=== PATIENT | male | born 1945 | race Caucasian/White ===

== ENCOUNTER → 2022-01-18 12:12 | Outpatient (BNVA) | payer MEDICARE, OTHER, SELFPAY | PROVIDERS: PCP Internal Medicine; Visit Provider Psychiatry & Neurology Psychiatry | DX: F33.9 Major depressive disorder, recurrent, unspecified (principal); F43.12 Post-traumatic stress disorder, chronic | CPT/HCPCS: 90833; 99212 ==

== ENCOUNTER → 2022-03-11 13:25 | Outpatient (BNVA) | payer MEDICARE, OTHER, SELFPAY | PROVIDERS: PCP Internal Medicine; Visit Provider Psychiatry & Neurology Psychiatry | DX: F43.12 Post-traumatic stress disorder, chronic (principal); F33.9 Major depressive disorder, recurrent, unspecified | CPT/HCPCS: 99212 ==

== ENCOUNTER → 2022-08-17 13:01 | Outpatient (BNVA) | payer MEDICARE, OTHER, SELFPAY | PROVIDERS: PCP Internal Medicine; Visit Provider Psychiatry & Neurology Psychiatry ==

== ENCOUNTER 2022-10-17 14:03 | Outpatient (AMB) | payer MEDICARE, OTHER, SELFPAY ==
--- OUTSIDE RECORDS SUMMARY | 2022-10-17 14:04 | XMS_ITS | Continuity of Care Document ---
Author Name Unknown Organization [facility] Address [address] [facility], [address] d Floor, [address] [place] [id number]- Care Team Providers Care Dietary Worker Name Role Phone Fercho GREEN, Liset Primary Care Physici an [facility] Date[facility]): 07/21/22 - 08/20/22 [facility] [address] [facility], 3rd Floor, [address] [place] [id number]- Allergies, Adverse Reactions, Alerts Substance Reaction Severity Status codeine Seizure Active penicillin Swelling - edema - symptom A ctive folic acid Itching Active tetanus toxoid Swelling - edema - symptom Active Immunizations Given and Recorded Vaccine Date Status Refusal Reason influenza virus vaccine, inactivated 01/10/22 Celso rded influenza virus vaccine, inactivated 12/26/20 Celso rded influenza virus vaccine, inactivated 12/31/19 Celso rded influenza virus vaccine, inactivated 01/11/19 Celso rded influenza virus vaccine, inactivated 01/30/18 Celso rded influenza virus vaccine, inactivated 03/06/17 Celso rded [id number] 12y+ bivalent booster vax 12/31/21 Recorded pneumococcal 20-valent conjugate vaccine 07/19/21 Recorded SARS-CoV-2 mRNA ([id number]) vax 06/16/21 Recorded SARS-CoV-2 (COVID-19) mRNA BNT-162b2 vac 12/21/20 Recorded SARS-CoV-2 (COVID-19) mRNA BNT-162b2 vac 07/09/20 Recorded SARS-CoV-2 (COVID-19) mRNA BNT-162b2 vac 06/19/20 Recorded Influenza Virus Vaccine (oldterm) 12/24/19 Recorde d Influenza Virus Vaccine (oldterm) 01/22/19 Recorde d pneumococcal 23-valent vaccine 11/27/15 Recorded pneumococcal 23-valent vaccine 11/26/14 Recorded Zoster Vaccine Live 11/26/14 Recorded Medications Aspirin Tablet 81 mg, By Mouth, Daily, Refills 0, Maintenance, 11/13/19 15:47:00 EDT Start Date: 11/13/19 Status: Ordered Coreg 25 mg oral tablet 25 mg, 1, tablet, By Mouth, 2 times a day, # 180 tablet, Refills 3, Tot. Refills 3, Maintenance, 08/05/22 10:36:00 EDT, Route to Pharmacy Electronically, [facility]/pharmacy #[id number], 172, cm, 06/25/22 11:27:00 EST, Height, 64.7, kg, 01/07/22 13:22:00 EDT, Dry... Start Date: 08/05/22 Stop Date: 07/31/23 Status: Ordered duloxetine 20 mg oral enteric coated capsule 1 capsule = 20 mg, By Mouth, Daily, 0 Refills, Maintenance, 12/21/21 10:12:00 EDT, Partial fill upon patient request if the prescription is for a schedule II opioid drug. Start Date: 12/21/21 Status: Ordered Evista 60 mg oral tablet 1 tablet, By Mouth, Daily, # 90 tablet, 0 Refills, Maintenance, 07/01/22 8:34:00 EST, [facility], 172, cm, 06/25/22 11:27:00 EST, Height, 64.7, kg, 01/07/22 13:22:00 EDT, Dry Weight Start Date: 07/01/22 Status: Ordered Flonase 50 mcg/inh nasal spray 1 sprays, Nares, Both, 2 times a day, # 16 Gm, 0 Refills, Maintenance, 09/25/21 16:47:00 EDT, [place], Partial fill upon patient request if the prescription is for a schedule II opioid drug. Start Date: 09/25/21 Status: Ordered isosorbide mononitrate 30 mg oral tablet, extended release 30 mg, 1, tablet, By Mouth, Daily in AM, Brand name IMDUR medically necessary, # 90 tablet, Refills3, Tot. Refills 3, Maintenance, 07/13/22 8:38:00 EDT, Route to Pharmacy Electronically, [id number], Please dispense brand name IMDUR, pat... Start Date: 07/13/22 Stop Date: 07/08/23 Status: Ordered Keppra 500 mg oral tablet 1 tablet = 500 mg, By Mouth, 2 times a day, # 60 tablet, 5 Refills, Maintenance, 07/21/22 12:59:00 EDT, Tablet, [facility], Partial fill upon patient request if the prescription is for a schedule II opioid drug., 172, cm, 06/25/22 11:27:... Start Date: 07/21/22 Status: Ordered Lipitor 80 mg oral tablet 1 tablet = 80 mg, By Mouth, Daily, # 90 tablet, 3 Refills, Maintenance, 06/14/22 14:46:00 EST, Tablet, [facility], 172, cm, 05/25/22 14:29:00 EST, Height, 64.7, kg, 01/07/22 13:22:00 EDT, Dry Weight Start Date: 06/14/22 Stop Date: 06/09/23 Status: Ordered Marinol 10 mg oral capsule See Instructions, 0 Refills, Maintenance, 01/13/21 11:24:00 EDT, Partial fill upon patient request if the prescription is for a schedule II opioid drug. Start Date: 01/13/21 Status: Ordered MS Contin 15 mg oral tablet, extended release See Instructions, 2 tablets By Mouth in the AM and 1 tablet in PM, 0 Refills, Maintenance, 11/20/2016:45:00 EDT, Partial fill upon patient request Start Date: 11/21/19 Status: Ordered nitroglycerin 0.4 mg sublingual tablet 1 tablet = 0.4 mg, Sublingual, Every 5 minutes, PRN for chest pain, not to exceed 3 doses/15 min--if pain persists, seek medical attention, # 30 tablet, 2 Refills, Maintenance, 07/05/21 17:01:00 EDT,Tablet, [facility]/pharmacy #[id number], 178, cm, 03/16/21 13:39... Start Date: 07/05/21 Status: Ordered Norvasc 5 mg oral tablet 5 mg, 1, tablet, By Mouth, Daily, BRAND NAME NORVASC ONLY, NO SUBSTITUTIONS, # 30 tablet, Refills 5, Tot. Refills 5, Maintenance, 09/27/21 16:44:00 EDT, Route to Pharmacy Electronically, [facility]/pharmacy#[id number], Partial fill upon patient request if the pre... Start Date: 09/27/21 Stop Date: 03/26/22 Status: Ordered [place]-3 1000 mg oral capsule 1 capsule = 1,000 mg, By Mouth, Daily, 0 Refills, Maintenance, 08/04/21 12:15:00 EDT, Partial fill upon patient request if the prescription is for a schedule II opioid drug. Start Date: 08/04/21 Status: Ordered omeprazole 20 mg oral delayed release tablet 1 tablet = 20 mg, By Mouth, Daily, # 90 tablet, 0 Refills, Maintenance, 01/07/22 15:26:00 EDT, CR Tablet, [facility], Partial fill upon patient request if the prescription is for a schedule II opioid drug., 172, cm, 01/07/22 13:22:00 EDT... Start Date: 01/07/22 Status: Ordered Plenvu oral powder for reconstitution See Instructions, split dose 1/2 dose day before 1/2 dose day of procedure (6hrs before procedure),# 1,000 mL, 0 Refills, Maintenance, 10/13/21 8:09:00 EDT, [facility], Partial fill upon patient request if the prescription is for a s... Start Date: 10/13/21 Status: Ordered Valium 10 mg oral tablet 10 mg, 1, tablet, By Mouth, 3 times a day, PRN, Refills 0, Maintenance, as needed for anxiety, 05/25/19 13:51:00 EST Start Date: 05/25/19 Status: Ordered Xanax 1 mg oral tablet 1 tablet = 1 mg, By Mouth, Daily, as needed for severe agitation, 0 Refills, Maintenance, 05/25/19 13:52:00 EST Start Date: 05/25/19 Status: Ordered Problem List Condition Confirmation Course Effective Dates Status Health St atus Informant Anemia Confirmed Active Anxiety Confirmed Active Chronic pain Confirmed Active Coronary artery disease Confirmed Active Hernia, hiatal 1 Confirmed Active Hypertension Confirmed Active Major depression in remission Confirmed Active Osteoporosis 2 Confirmed Active Prediabetes Confirmed Active Seizure Confirmed Active 1Small, sliding on July 06, 2021 CAT scan 2per pt Social History Social History Type Response Smoking Status Former smoker, quit more than 30 days ago; Other: Quit 1969; entered on: 08/04/21 Sex Patient Care team information Care Team Personnel Name: Barby Price Position: [facility] RN Member Role: Primary Care Nurse Name: Fercho GREEN, Liset Position: [facility] Medicine Member Role: PCP Address: Address: [address] [place] [id number]- Care Team Related Persons Name: CHERRIE BERKOWITZ Address: home [address] [place] [address]
--- OUTSIDE RECORDS SUMMARY | 2022-10-17 14:05 | XMS_ITS | Continuity of Care Document ---
Author Name Unknown Organization [facility] Address [address] [place] [address] [address] [place] [address]- Care Team Providers Care Apparatus Cleaner Name Role Phone Fercho GREEN, Liset Primary Care Physici an [facility] Date[facility]s): 08/04/22 - 09/03/22 [facility] [address] [place] [address]- Allergies, Adverse Reactions, Alerts Substance Reaction Severity [...] influenza virus vaccine, inactivated 03/06/17 Celso rded [id number] 12y+ bivalent booster vax 12/31/21 Recorded pneumococcal 20-valent conjugate vaccine 07/19/21 Recorded SARS-CoV-2 mRNA ([id number]) vax 06/16/21 Recorded SARS-CoV-2 (COVID-19) mRNA BNT-162b2 [...] 2 times a day, # 60 tablet, Refills 2, Tot. Refills 2, Maintenance, 08/29/22 16:36:00 EDT, Route to Pharmacy Electronically, [facility]/pharmacy #[id number], generic (Carvedilol) please, 172, cm, 06/25/22 11:27:00 EST, Height, 64.7, kg,... Start Date: 08/29/22 Stop Date: 11/27/22 Status: Ordered duloxetine 20 mg oral enteric [...] Gm, 0 Refills, Maintenance, 09/25/21 16:47:00 EDT, [place], Partial fill upon patient request if the [...] tablet, 2 Refills, Maintenance, 07/05/21 17:01:00 EDT,Tablet, [facility]/pharmacy #[id number], 178, cm, 03/16/21 13:39... Start Date: 07/05/21 Status: Ordered Norvasc 5 mg oral tablet 5 mg, 1, tablet, By Mouth, Daily, BRAND NAME NORVASC ONLY, NO SUBSTITUTIONS, # 30 tablet, Refills 5, Tot. Refills 5, Maintenance, 09/27/21 16:44:00 EDT, Route to Pharmacy Electronically, [facility]/pharmacy#[id number], Partial fill upon patient request if the pre... Start Date: 09/27/21 Stop Date: 03/26/22 Status: Ordered [place]-3 1000 mg oral capsule 1 capsule = [...] Care Team Personnel Name: Barby Price Position: [facility] RN Member Role: Primary Care Nurse Name: Fercho GREEN, Liset Position: [facility] Medicine Member Role: PCP Address: Address: [address] [place] [address] [address] [place] [address]- Care Team Related Persons Name: CHERRIE BERKOWITZ Address: home [address] [place] [address]
--- NOTE | 2022-10-17 14:40 | MHC.OFFVISPS ---
Intake Intake Visit Reasons: depression Allergies codeine [CODEINE] Allergy (Intermediate, Unverified 01/09/20 15:39) RASH/VOMITING, vomiting Penicillins [PENICILLINS] Allergy (Intermediate, Unverified 01/09/20 15:39) ARM EDEMA ibandronate sodium Allergy (Unknown, Verified 05/09/18 00:00) rash penicillin V Allergy (Unknown, Verified 05/09/18 00:00) arm edema Tetanus Allergy (Unknown, Unverified 10/22/18 00:00) arm edema TETANUS & DIPHTHERIA TOX,ADULT Allergy (Intermediate, Uncoded 01/09/20 15:39) ARM EDEMA Codeine Sulfate Allergy (Unknown, Uncoded 10/22/18 00:00) shellfish Allergy (Unknown, Uncoded 05/09/18 00:00) vomiting HPI- Psychiatric Chief Complaint: depression HPI Past Psychiatric History: Patient is a 76-year-old male with long history of recurrent depression anxiety and PTSD. He normally sees Dr. Ashish Galvan for regular counseling. He did not tolerate duloxetine 20 mg and has been taking Valium 10 t.i.d. alprazolam 1 mg daily which has been tapered down gradually over number of years. We have had multiple discussions over affects of benzodiazepines specially as people get older patient has been quite resistant to trying to taper down. : Discussed with patient and trying to taper down on diazepam risk of clouding slowed mentation fall risk. Patient with longstanding PTSD fearful of tapering down on diazepam agreeable to starting sertraline 25 mg The patient is also on Keppra MS Contin other medications that can cause clouding might benefit from changing from long-acting Valium to alprazolam 3 to 4 times a day which might be in longer safer. Patient has been resistant to this. I spent [40] minutes reviewing the record, seeing the patient and documenting in the medical record. Patient is a 76-year-old male with long history of recurrent depression anxiety and PTSD. He normally sees Dr. Ashish Galvan for regular counseling. He did not tolerate duloxetine 20 mg and has been taking Valium 10 t.i.d. alprazolam 1 mg daily which has been tapered down gradually over number of years. We have had multiple discussions over affects of benzodiazepines specially as people get older patient has been quite resistant to trying to taper down. The patient has had an increase in PTSD symptoms with the [place] more it is also been more withdrawn and isolated since COVID he has been quite preoccupied become in ill and dying from this. He was quite active in seeing his adopted granddaughters sports games which she has ceased going to. He has been more depressed in isolated no SI. Patient has been seeing Dr. Deepak uBrton in psychotherapy for many years patient has experienced decline in physical health over the past couple years with stresses related to requiring 3 stents coronary at [facility] osteoporosis chronic pain syndrome spinal difficulties [place] he has tried Cymbalta in the past had GI side effects was on Wellbutrin in the past for number of years with good effect has reportedly developed a seizure disorder and has been off of this. Or the patient use to see Dr. Gonzalez thomas for psychiatric follow-up for number of years has been seeing Dr. Kike Ng for psychiatric follow-up Impaired judgment in relation to understanding the affects of benzodiazepines on balance sedation cognition specially in relation to the aging process. [place] he has tried Cymbalta in the past had GI side effects was on Wellbutrin in the past for number of years with good effect has reportedly developed a seizure disorder and has been off of this Or the patient use to see Dr. Gonzalez thomas for psychiatric follow-up for number of years has been seeing Dr. Kike Ng for psychiatric follow-up Assessment and Plan Assessment & Plan (1) Cognitive impairment: Status: Acute Code(s): R41.89 - Other symptoms and signs involving cognitive functions and awareness (2) Chronic post-traumatic stress disorder (PTSD): Status: Acute Code(s): F43.12 - Post-traumatic stress disorder, chronic (3) Major depression, recurrent, chronic: Status: Acute Code(s): F33.9 - Major depressive disorder, recurrent, unspecified Plan Patient with chronic PTSD narcissistic orientation has been on high-dose benzodiazepines for an extended period of time we have discussed trying to taper down over time the patient and often becomes quite and rage. He is having difficulty with working attention short-term memory and executive functioning. His is managing most things and there was questionable history of aggression on his part. Patient seen with his she is supportive during the meeting but clearly can see that the patient's functioning has deteriorated. The patient does have cardiovascular disease he is certainly at risk of vascular brain changes also chronic PTSD can cause or is associated with brain changes. Check CBC comprehensive profile B12 folate hemoglobin A1c syphilis screen would benefit from coordination of care with Dr. Burton who in the past has been a neuro psychologist is the patient's therapist patient ruminating and depressed has been off antidepressants for an extended period of time agreeable to low-dose sertraline can very gradually try to lower Valium which is quite long-acting he is on 30 mg a day would try to lower to 25 mg a day patient also on Keppra questionable history seizure. Recommended patient see neurologist also would benefit from MRI. Did have extensive discussion with the patient's and patient that diazepam is quite long-acting and as he gets older the levels would be higher for the same dosages his blood stream that was previously. And that his tolerance would become diminished over time and that would be difficult to get a clear evaluation of his neurocognitive status unless could be tapered down. Might benefit from change from long-acting Valium alprazolam t.i.d. however is probably could not being accomplished as an outpatient and might need to be a [facility] psych Unit The patient has been it [facility] for some of his medical care the patient's is trying to get an appointment with [facility] neurologist See minimental status Medications: New Zoloft (sertraline) 25 mg PO DAILY 30 tabs 1RF NS Orders: Orders Complete Blood Count Auto Diff 10/17/22 F43.12 - Post-traumatic stress disorder, chronic, F33.9 - Major depressive disorder, recurrent, unspecified, R41.89 - Other symptoms and signs involving cognitive functions and awareness Comprehensive Met. Panel 10/17/22 F43.12 - Post-traumatic stress disorder, chronic, F33.9 - Major depressive disorder, recurrent, unspecified, R41.89 - Other symptoms and signs involving cognitive functions and awareness Hemoglobin A1c 10/17/22 F43.12 - Post-traumatic stress disorder, chronic, F33.9 - Major depressive disorder, recurrent, unspecified, R41.89 - Other symptoms and signs involving cognitive functions and awareness TSH reflex Free T4 10/17/22 F43.12 - Post-traumatic stress disorder, chronic, F33.9 - Major depressive disorder, recurrent, unspecified, R41.89 - Other symptoms and signs involving cognitive functions and awareness Vitamin B12 and Folate 10/17/22 F43.12 - Post-traumatic stress disorder, chronic, F33.9 - Major depressive disorder, recurrent, unspecified, R41.89 - Other symptoms and signs involving cognitive functions and awareness Syphilis Screen 10/17/22 F43.12 - Post-traumatic stress disorder, chronic, F33.9 - Major depressive disorder, recurrent, unspecified, R41.89 - Other symptoms and signs involving cognitive functions and awareness Counseling and coordination of Care Medication management counseling: Effectiveness, Side effects and Dosing range Diagnosis and Prognosis Counseling: Accuracy of diagnosis, Impact of diagnosis on life functions, Problematic behaviors secondary to diagnosis and Adequacy of current interventions Details: I spent [45] minutes reviewing the record, seeing the patient and documenting in the medical record. Counseling provided to the patient/caregiver as outlined below. Addressed patient/caregiver concerns regarding current medication regime including effective adherence. Addressed patient/caregiver concerns regarding diagnosis and prognosis including accuracy of diagnosis, prognosis over time, impact of diagnosis. Addressed patient/caregiver concerns regarding impact of recent stressors. REPLACED BY [facility] Medical History (Updated 10/17/22 @ 14:37 by Kike Ng MD) Chronic post-traumatic stress disorder (PTSD) Surgical History (Updated 01/18/22 @ 16:46 by Kike Ng MD) H/O heart artery stent Social History: The patient is he has a son in [place] he is raising his granddaughter his daughter's child. Patient served in [place] for 1/2 years has significant PTSD. Substance History: Patient has been prescribed Marinol and benzodiazepines for many years he also is prescribed MS Contin. Denies history of substance abuse Trauma History: History of severe combat trauma in [place] Coding Level of Care Code Est Pt Level 3 (59667) Therapy 30m w/E&M (96227) Diagnoses Cognitive impairment R41.89 Chronic post-traumatic stress disorder (PTSD) F43.12 Major depression, recurrent, chronic F33.9
== END 2022-10-17 14:54 | disposition home or self-care (01) ==
PROVIDERS: PCP Internal Medicine; Visit Provider Psychiatry & Neurology Psychiatry
DX: R41.89 Other symptoms and signs involving cognitive functions and awareness (principal); F43.12 Post-traumatic stress disorder, chronic; F33.9 Major depressive disorder, recurrent, unspecified
CPT/HCPCS: 90833; 99213

== ENCOUNTER 2022-10-17 14:03 | Outpatient (REF) | payer MEDICARE, OTHER, SELFPAY ==
[2022-10-17 15:18] LABS: MANUAL DIFF FLAG NO
[2022-10-17 15:37] LABS: Basophils Absolute Auto 0.1 X10*3/uL (0.0-0.2); Basophils Percent Auto 1.1 % (0-2); Eosinophils Absolute Auto 0.4 X10*3/uL (0.0-0.4); Eosinophils Percent Auto 6.7 % (0-4); Hematocrit 32.8 % (42.0-52.0); Imm Gran Abs Auto 0.01 X10*3/uL (0.00-0.03); Imm Gran Pct Auto 0.2 % (0.0-0.4); Lymphocytes Absolute Auto 1.9 X10*3/uL (1.2-4.9); Lymphocytes Percent Auto 35.3 % (20-40); Mean Corpuscular HGB Conc 33.5 g/dl (31.0-36.0); Mean Corpuscular Hemoglobin 32.6 pg (27.0-33.0); Mean Corpuscular Volume 97.3 fL (80.0-98.0); Mean Platelet Volume 10.4 fL (9.4-12.4); Monocytes Absolute Auto 0.5 X10*3/uL (0.1-1.2); Monocytes Percent Auto 9.8 % (2-11); Neutrophils Absolute Auto 2.6 x10*3/uL (2.0-8.3); Neutrophils Percent Auto 46.9 % (45-73); Platelet Count 207 X10*3/uL (160-400); Red Blood Count 3.37 X10*6/uL (4.60-5.80); Red Cell Distribution Width 11.9 % (11.0-16.0); White Blood Count 5.5 X10*3/uL (4.8-10.8)
[2022-10-17 15:47] LABS: Estimated Average Glucose 114 mg/dL; Hemoglobin A1c % 5.6 %
[2022-10-17 16:24] LABS: Alanine Aminotransferase 18 U/L (0-40); Albumin Level 3.9 g/dL (3.5-5.0); Alkaline Phosphatase 75 U/L (39-117); Anion Gap 10 (12-20); Aspartate Amino Transferase 26 U/L (5-37); Bilirubin Total 0.6 mg/dL (0.0-1.0); Blood Urea Nitrogen 17 mg/dL (9-16); Calcium 9.4 mg/dL (8.4-10.2); Carbon Dioxide 31 mmol/L (22-29); Chloride 102 mmol/L (96-108); Estimated Glomerular Filt Rate > 60; Glucose Random 137 mg/dL (60-115); Potassium 4.8 mmol/L (3.3-5.1); Sodium 138 mmol/L (135-145); Total Protein 6.4 g/dL (6.5-8.0)
[2022-10-17 16:31] LABS: TSH reflex Free T4 1.71 uIU/mL (0.32-4.0)
[2022-10-17 16:47] LABS: Folate 18.5 ng/mL (> or = 4.0); Vitamin B12 883 pg/mL (200-900)
[2022-10-19 05:13] LABS: Syphilis Screen Nonreactive (Nonreactive)
== END 2022-10-17 14:04 | disposition home or self-care (01) ==
LOC: HO.LAB 14:03
PROVIDERS: PCP Internal Medicine; Visit Provider Psychiatry & Neurology Psychiatry
DX: F33.9 Major depressive disorder, recurrent, unspecified (principal); F43.12 Post-traumatic stress disorder, chronic; R41.89 Other symptoms and signs involving cognitive functions and awareness; F41.9 Anxiety disorder, unspecified; Z79.899 Other long term (current) drug therapy
CPT/HCPCS: 36415; 80053; 82607; 82746; 83036; 84443; 85025; 86780; 90833; 99212

== ENCOUNTER 2022-11-28 14:26 | Outpatient (AMB) | payer MEDICARE, OTHER, SELFPAY ==
--- NOTE | 2022-11-28 15:18 | MHC.OFFVISPS ---
Intake Intake Visit Reasons: depression Allergies codeine [CODEINE] Allergy (Intermediate, Unverified 01/09/20 15:39) RASH/VOMITING, vomiting Penicillins [PENICILLINS] Allergy (Intermediate, Unverified 01/09/20 15:39) ARM EDEMA ibandronate sodium Allergy (Unknown, Verified 05/09/18 00:00) rash penicillin V Allergy (Unknown, Verified 05/09/18 00:00) arm edema Tetanus Allergy (Unknown, Unverified 10/22/18 00:00) arm edema TETANUS & DIPHTHERIA TOX,ADULT Allergy (Intermediate, Uncoded 01/09/20 15:39) ARM EDEMA Codeine Sulfate Allergy (Unknown, Uncoded 10/22/18 00:00) shellfish Allergy (Unknown, Uncoded 05/09/18 00:00) vomiting HPI- Psychiatric Chief Complaint: depression HPI Narrative: Patient seen with his . Have strongly advised gradual taper down on benzodiazepines patient has been on benzodiazepines for many years for treatment of severe PTSD and we have tried over time to gradually taper down. Patient can be quite irritable reactive and rigid in relationship to his treatment patient was read hospitalized with what appears to be anxiety in relationship to and dissipation of decreasing benzodiazepines. I have advised neuropsych testing patient states he did not tolerate sertraline. Had been on antidepressants often on for a number of years most recently a stated he did not tolerate and presence. Case reviewed with his psychologist agrees that the patient is showing cognitive deterioration consistent months likely with early dementia see prior screening and testing. Patient wishes to get care at [facility] where he had cardiology intervention they are looking to have further neurologic evaluation patient complains of frequent flashbacks nightmares has been dysphoric irritable denies any harm to himself or others I have also discussed with patient his the option of getting treatment at the [facility] Past Psychiatric History: Patient is a 76-year-old male with long history of recurrent depression anxiety and PTSD. He normally sees Dr. Ashish Galvan for regular counseling. He did not tolerate duloxetine 20 mg and has been taking Valium 10 t.i.d. alprazolam 1 mg daily which has been tapered down gradually over number of years. We have had multiple discussions over affects of benzodiazepines specially as people get older patient has been quite resistant to trying to taper down. : Discussed with patient and trying to taper down on diazepam risk of clouding slowed mentation fall risk. Patient with longstanding PTSD fearful of tapering down on diazepam agreeable to starting sertraline 25 mg The patient is also on Keppra MS Contin other medications that can cause clouding might benefit from changing from long-acting Valium to alprazolam 3 to 4 times a day which might be in longer safer. Patient has been resistant to this. I spent [40] minutes reviewing the record, seeing the patient and documenting in the medical record. Patient is a 76-year-old male with long history of recurrent depression anxiety and PTSD. He normally sees Dr. Ashish Galvan for regular counseling. He did not tolerate duloxetine 20 mg and has been taking Valium 10 t.i.d. alprazolam 1 mg daily which has been tapered down gradually over number of years. We have had multiple discussions over affects of benzodiazepines specially as people get older patient has been quite resistant to trying to taper down. The patient has had an increase in PTSD symptoms with the [place] more it is also been more withdrawn and isolated since COVID he has been quite preoccupied become in ill and dying from this. He was quite active in seeing his adopted [employer] sports games which she has ceased going to. He has been more depressed in isolated no SI. Patient has been seeing Dr. Deepak Burton in psychotherapy for many years patient has experienced decline in physical health over the past couple years with stresses related to requiring 3 stents coronary at [facility] osteoporosis chronic pain syndrome spinal difficulties Patient was hospitalized in the for [facility] through the [facility]. he has tried Cymbalta in the past had GI side effects was on Wellbutrin in the past for number of years with good effect has reportedly developed a seizure disorder and has been off of this. Or the patient use to see Dr. Gonzalez thomas for psychiatric follow-up for number of years has been seeing Dr. Kike Ng for psychiatric follow-up Impaired judgment in relation to understanding the affects of benzodiazepines on balance sedation cognition specially in relation to the aging process. Patient was hospitalized in the for [facility] through the [facility]. he has tried Cymbalta in the past had GI side effects was on Wellbutrin in the past for number of years with good effect has reportedly developed a seizure disorder and has been off of this Or the patient use to see Dr. Gonzalez thomas for psychiatric follow-up for number of years has been seeing Dr. Kike Ng for psychiatric follow-up Mental Status Exam Mental Status Exam Narrative: Mental Status Exam Narrative: Appearance: Casually dressed Behavior: irritable somewhat demanding in manner psychomotor: Restless Speech: Somewhat louder Thought proccess ruminating somewhat circumstantial otherwise logical Thought content: Future oriented no self-harming thoughts talks about intrusive memories Mood: Anxious dysphoric irritable Affect: labile SI:denies HI:denies VH/AH:none Delusions: None Insight/judgment: Difficulty taking in information that he does not want hear poor attention Memory/cog: Difficult to assess at this time discussed comprehensive cognitive assessment Patient Behavior: Passive Mood Description: Depressed and Blunted Affect Description: Constricted, Depressed, Flat and Apprehensive Memory Description: Episodic Impaired Hallucinations: None Delusions: Not Present Thought Content: positive for [place], negative for Suicidal Ideation or negative for Homicidal Ideation Depressive Symptoms: Isolating-Friends/Family and Loss of Energy Judgement and Insight: Impaired judgment in relation to understanding the affects of benzodiazepines on balance sedation cognition specially in relation to the aging process. Assessment and Plan Assessment & Plan (1) Chronic post-traumatic stress disorder (PTSD): Status: Acute Code(s): F43.12 - Post-traumatic stress disorder, chronic (2) Major depression, recurrent, chronic: Status: Acute Code(s): F33.9 - Major depressive disorder, recurrent, unspecified (3) Cognitive impairment: Status: Acute Code(s): R41.89 - Other symptoms and signs involving cognitive functions and awareness Plan Her patient seen with his discussed trying to very gradually go down by half tablet of Valium every few weeks and that has an extremely long half-life patient cannot integrate this in has a lot of anxiety regarding any time this is brought up. To try to introduce an SSRI for some help with his irritability and dysphoria. Patient has always been somewhat self referential grandiose unclear if all of his war stories are based in reality seems to get more grandiose with time and difficulty understanding that he is having cognitive changes. We have tried to gradually go down over time have strongly urged concurrent antidepressant which she has tolerated in the past may need to inpatient [facility] setting recommended [facility] General Neurology and [facility] patient's therapist Dr. Galvan is also aware patient deny violence or threats at home no SI Medications: Changed From Valium orally PRN; 1/2 - 1 tablet up to 3 x day try and gradually decrease to 1/2 tab 3 x day 80 tabs 0RF anxiety NS To Valium (diazepam) orally PRN; 1/2 - 1 tablet up to 3 x day 90 tabs 0RF anxiety NS From Valium orally PRN; 1/2 - 1 tablet up to 3 x day 90 tabs 0RF anxiety NS To Valium (diazepam) orally PRN; 1/2 - 1 tablet up to 3 x day 90 tabs 0RF anxiety NS Refilled Marinol (dronabinol) 5 - 10 mg (1 - 2 x 5 mg) PO BEDTIME 60 caps 1RF 30 days NS Xanax (alprazolam) 1 mg PO DAILY PRN 30 tabs 1RF anxiety NS Discontinued sertraline Discontinued Reason: Duplicate 25 mg PO DAILY 30 tabs 1RF Counseling and coordination of Care Details: I spent [] minutes reviewing the record, seeing the patient and documenting in the medical record. Counseling provided to the patient/caregiver as outlined below. Addressed patient/caregiver concerns regarding current medication regime including effective adherence. Addressed patient/caregiver concerns regarding diagnosis and prognosis including accuracy of diagnosis, prognosis over time, impact of diagnosis. Addressed patient/caregiver concerns regarding impact of recent stressors. [facility] Medical History (Updated 10/17/22 @ 14:37 by Kike Ng MD) Chronic post-traumatic stress disorder (PTSD) Surgical History (Updated 01/18/22 @ 16:46 by Kike Ng MD) H/O heart artery stent Social History: The patient is he has a son in [place] he is raising his granddaughter his daughter's child. Patient served in [place] for 1/2 years has significant PTSD. Substance History: Patient has been prescribed Marinol and benzodiazepines for many years he also is prescribed MS Contin. Denies history of substance abuse Trauma History: History of severe combat trauma in [place] Coding Level of Care Code Est Pt Level 4 (59785) Diagnoses Chronic post-traumatic stress disorder (PTSD) F43.12 Major depression, recurrent, chronic F33.9 Cognitive impairment R41.89
== END 2022-11-28 15:22 | disposition home or self-care (01) ==
LOC: HO.HOP 14:26
PROVIDERS: PCP Internal Medicine; Visit Provider Psychiatry & Neurology Psychiatry
DX: F43.12 Post-traumatic stress disorder, chronic (principal); F33.9 Major depressive disorder, recurrent, unspecified; R41.89 Other symptoms and signs involving cognitive functions and awareness
CPT/HCPCS: 99214

== ENCOUNTER → 2022-11-28 14:26 | Outpatient (BNVA) | payer MEDICARE, OTHER, SELFPAY | PROVIDERS: PCP Internal Medicine; Visit Provider Psychiatry & Neurology Psychiatry | DX: R41.89 Other symptoms and signs involving cognitive functions and awareness (principal); F43.12 Post-traumatic stress disorder, chronic; F33.9 Major depressive disorder, recurrent, unspecified | CPT/HCPCS: 99212 ==

== ENCOUNTER 2023-07-19 11:22 | Outpatient (AMB) | payer MEDICARE, OTHER, SELFPAY ==
--- NOTE | 2023-07-19 11:55 | A.OFFPSYCH_ITS ---
Intake Intake Visit Reasons: depression Allergies codeine [CODEINE] Allergy (Intermediate, Unverified 01/09/20 15:39) RASH/VOMITING, vomiting Penicillins [PENICILLINS] Allergy (Intermediate, Unverified 01/09/20 15:39) ARM EDEMA ibandronate sodium Allergy (Unknown, Verified 05/09/18 00:00) rash penicillin V Allergy (Unknown, Verified 05/09/18 00:00) arm edema Tetanus Allergy (Unknown, Unverified 10/22/18 00:00) arm edema TETANUS & DIPHTHERIA TOX,ADULT Allergy (Intermediate, Uncoded 01/09/20 15:39) ARM EDEMA Codeine Sulfate Allergy (Unknown, Uncoded 10/22/18 00:00) shellfish Allergy (Unknown, Uncoded 05/09/18 00:00) vomiting Medication List - Last Reconciled 07/26/23 by Kike Ng MD amlodipine (Norvasc) 5 mg PO DAILY aspirin 81 mg PO DAILY atorvastatin (Lipitor) 80 mg PO DAILY carvedilol (Coreg) 25 mg PO BID clopidogrel (Plavix) 75 mg PO DAILY isosorbide mononitrate ER 30 mg PO QAM levetiracetam 750 mg PO BID morphine ER (MS Contin) 15 mg PO BID pantoprazole 20 mg PO DAILY raloxifene (Evista) 60 mg PO DAILY Valium (diazepam) 2 mg PO BEDTIME PRN NS HPI- Psychiatric Chief Complaint: depression HPI Narrative: The patient is a 77 year old male seen with his . The patient has developed clear dementia I have discussed his the need to follow-up with neurology. The patient is off antidepressants on 5 mg of Valium at bedtime he is also on Keppra seizure disorder. Past Psychiatric History: Patient is a 76-year-old male with long history of recurrent depression anxiety and PTSD. He normally sees Dr. Ashish Galvan for regular counseling. He did not tolerate duloxetine 20 mg and has been taking Valium 10 t.i.d. alprazolam 1 mg daily which has been tapered down gradually over number of years. We have had multiple discussions over affects of benzodiazepines specially as people get older patient has been quite resistant to trying to taper down. : Discussed with patient and trying to taper down on diazepam risk of clouding slowed mentation fall risk. Patient with longstanding PTSD fearful of tapering down on diazepam agreeable to starting sertraline 25 mg The patient is also on Keppra MS Contin other medications that can cause clouding might benefit from changing from long-acting Valium to alprazolam 3 to 4 times a day which might be in longer safer. Patient has been resistant to this. I spent [40] minutes reviewing the record, seeing the patient and documenting in the medical record. Patient is a 76-year-old male with long history of recurrent depression anxiety and PTSD. He normally sees Dr. Ashish Galvan for regular counseling. He did not tolerate duloxetine 20 mg and has been taking Valium 10 t.i.d. alprazolam 1 mg daily which has been tapered down gradually over number of years. We have had multiple discussions over affects of benzodiazepines specially as people get older patient has been quite resistant to trying to taper down. The patient has had an increase in PTSD symptoms with the [place] more it is also been more withdrawn and isolated since COVID he has been quite preoccupied become in ill and dying from this. He was quite active in seeing his adopted granddaughters sports games which she has ceased going to. He has been more depressed in is olated no SI. Patient has been seeing Dr. Deepak Burton in psychotherapy for many years patient has experienced decline in physical health over the past couple years with stresses related to requiring 3 stents coronary at [facility] osteoporosis chronic pain syndrome spinal difficulties Patient was hospitalized in the for PTSD through the [place]. he has tried Cymbalta in the past had GI side effects was on Wellbutrin in the past for number of years with good effect has reportedly developed a seizure disorder and has been off of this. Or the patient use to see Dr. Gonzalez thomas for psychi atric follow-up for number of years has been seeing Dr. Kike Ng for psychiatric follow-up Impaired judgment in relation to understanding the affects of benzodiazepines on balance sedation cognition specially in relation to the aging process. Patient was hospitalized in the for PTSD through the [place]. he has tried Cymbalta in the past had GI side effects was on Wellbutrin in the past for number of years with good effect has reportedly developed a seizure disorder and has been off of this Or the patient use to see Dr. Gonzalez thomas for psychiatric follow-up for number of years has been seeing Dr. Kike Ng for psychiatric follow-up Mental Status Exam Mental Status Exam Narrative: [id number] knows where he lives 1972 x day mood ok repetitive fearful to be alone often wanting his to stay in with him otherwise becomes anxious and irritable Patient anxious difficulty with changing thought patterns obsessional rumination repeats over and over again brand name necessary no gross paranoia SI or HI. Assessment and Plan Assessment & Plan (1) Chronic post-traumatic stress disorder (PTSD): Status: Acute Code(s): F43.12 - Post-traumatic stress disorder, chronic (2) Dementia: Status: Acute Code(s): F03.90 - Unspecified dementia, unspecified severity, without behavioral disturbance, psychotic disturbance, mood disturbance, and anxiety Plan Patient has gradually tapered off Marinol diazepam he is on Keppra. I have discussed with his need for neurological follow-up for seizure disorder and dementia. Handout given regarding dementia treatment including cholinesterase inhibitors would probably be a good candidate for [place] The patient and do see Dr. Burton who is a neuropsychologist and in addition to Neurology and primary care can offer ongoing treatment and recommendations Medications: Changed From Valium (diazepam) orally PRN; 1/2 - 1 tablet up to 3 x day try and decrease to half tab 2 x day 60 tabs 1RF anxiety NS To diazepam 1 tab bedtime x 2 weeks then stop 2 mg PO BEDTIME PRN 14 tabs 0RF sleep From diazepam 1 tab bedtime x 2 weeks then stop 2 mg PO BEDTIME PRN 14 tabs 0RF sleep To Valium (diazepam) 1 tab bedtime x 2 weeks then stop 2 mg PO BEDTIME PRN 20 tabs 0RF sleep NS Discontinued Marinol (dronabinol) Discontinued Reason: Doctor's Order 5 - 10 mg (1 - 2 x 5 mg) PO BEDTIME 60 caps 1RF 30 days NS Xanax (alprazolam) Discontinued Reason: Doctor's Order 1 mg PO DAILY PRN 30 tabs 1RF anxiety NS Counseling and coordination of Care Details-Diagnosis/Prognosis counseling: Discussion regarding dementia memory disorder diagnosis recommendations for fol low-up would benefit [facility] PTSD symptoms seem to be less patient has not generally stayed on antidepressant treatment Details: I spent [25] minutes reviewing the record, seeing the patient and documenting in the medical record. Counseling provided to the patient/caregiver as outlined below. Addressed patient/caregiver concerns regarding current medication regime including effective adherence. Addressed patient/caregiver concerns regarding diagnosis and prognosis including accuracy of diagnosis, prognosis over time, impact of diagnosis. Addressed patient/caregiver concerns regarding impact of recent stressors. [facility] Medical History (Updated 07/26/23 @ 13:30 by Kike Ng MD) Dementia Chronic post-traumatic stress disorder (PTSD) Surgical History (Updated 01/18/22 @ 16:46 by Kike Ng MD) H/O heart artery stent Social History: The patient is he has a son in [place] he is raising his granddaughter his daughter's child. Patient served in [place] for 1/2 years has significant PTSD. Substance History: Patient has been prescribed Marinol and benzodiazepines for many years he also is prescribed MS Contin. Denies history of substance abuse Trauma History: History of severe combat trauma in [place] Coding Level of Care Code Est Pt Level 4 (56482) Diagnoses Chronic post-traumatic stress disorder (PTSD) F43.12 Dementia F03.90
== END 2023-07-19 12:55 | disposition home or self-care (01) ==
LOC: HO.HOP 11:22
PROVIDERS: PCP Internal Medicine; Visit Provider Psychiatry & Neurology Psychiatry
DX: F43.12 Post-traumatic stress disorder, chronic (principal); F03.90 Unspecified dementia, unspecified severity, without behavioral disturbance, psychotic disturbance, mood disturbance, and anxiety
CPT/HCPCS: 99214

== ENCOUNTER → 2023-07-19 11:22 | Outpatient (BNVA) | payer MEDICARE, OTHER, SELFPAY | PROVIDERS: PCP Internal Medicine; Visit Provider Psychiatry & Neurology Psychiatry | DX: F32.A Depression, unspecified (principal); F03.90 Unspecified dementia, unspecified severity, without behavioral disturbance, psychotic disturbance, mood disturbance, and anxiety; F43.10 Post-traumatic stress disorder, unspecified; F41.9 Anxiety disorder, unspecified | CPT/HCPCS: 99212 ==